=== PATIENT | female | born 1935 | race Caucasian/White ===

== ENCOUNTER 2017-05-14 09:37 | Emergency (ER) | payer MEDICARE, OTHER ==
--- NOTE | ~2017-05-14 | CT4 ---
[facility] A Service of [facility] & [facility] RADIOLOGY TEXT RESULTS PATIENT: DOMINIQUE HOANG LOCATION: SED : 33 UNIT #: [id number] AGE: [address]: Natalio Wynn MD SEX: F ORDER DR: [id number] [address] [address] [id number] E MR#: [id number] Acc #: [id number] NAME: DOMINIQUE HOANG. : 1935 SEX: F STUDY DATE/TIME: 05/14/2017 11:36 UNIT: SED ROOM: STUDY DESCRIPTION: CT Abd and Pelv Wo Cont Attending Physician: Natalio Wynn M.D. Ordering Physician: Natalio Wynn M.D. Primary Care Physician: Davide So Jr., M.D. MEDICAL IMAGING REPORT This report is preliminary unless electronic signature is present. EXAM CT abdomen and pelvis without IV contrast. COMPARISON None. INDICATIONS 81-year-old female with low back pain radiating into the right leg for [address] imaging of the abdomen and pelvis was performed without IV contrast. Lack of IV contrast limits evaluation of adenopathy, vasculature and viscera. Coronal and sagittal reformats were constructed. This CT exam was performed with one or more of the following radiation dose reduction techniques: automatic exposure control, adjustment of mA and/or kV according to patient size, and iterative reconstruction. There is a small fat-containing umbilical hernia. Multilevel degenerative facet disease of the lumbar spine. There is multilevel degenerative endplate change and multilevel degenerative posterior disc protrusion of the lumbar spine. No acute fractures or suspicious osseous lesions. Minimal atelectasis in the anterior inferior right middle lobe. Calcified granulomas in the left lower lobe. Calcified hepatic and splenic granulomas. Layering density seen within the gallbladder lumen consistent with cholelithiasis. No evidence of acute cholecystitis. Adrenal glands are within normal limits. There is mild atrophy of the pancreas. There is no evidence of hydronephrosis. There is scarring in the left kidney inferiorly. No renal or ureteral calculi. Urinary bladder is unremarkable. The patient is post hysterectomy. No evidence of adnexal mass. There is at least moderate bony central canal stenosis at L5-S1 due to degenerative facet hypertrophy primarily. There is severe bony neural foraminal narrowing on the left at [facility] A Service of [facility] & [facility] RADIOLOGY TEXT RESULTS PATIENT: DOMINIQUE HOANG [place] [facility] [place]IT #: [id number] AGE: [address]: Natalio Wynn MD SEX: F ORDER DR: L4-L5 with mild bony neural foraminal narrowing on the left L5-S1. On the left at all the other levels of the lumbar spine, there is mild bony neural foraminal narrowing. On the right, there is severe bony neural foraminal narrowing at L5-S1 with [id number] bony neural foraminal narrowing on the right and L4-L5 and mild bony neural foraminal narrowing on the right at all of the levels of the lumbar spine. Colonic diverticulosis without evidence of acute diverticulitis. Splenule noted in the left upper quadrant of the abdomen. The appendix is not seen and may be surgically absent. No secondary findings of an acute appendicitis. There is nonspecific haziness of the mesenteric fat, perhaps reflecting a mesenteritis of uncertain acuity. There is normal caliber of the abdominal aorta, which is diffusely calcified. Calcifications extend to involve the celiac, the superior mesenteric and bilateral renal arteries and extend into the bilateral iliac arteries. No free fluid or pneumoperitoneum. No adenopathy. IMPRESSION 1. No acute findings the abdomen, pelvis or imaged lower chest. 2. Diffuse degenerative disc disease and degenerative facet disease and posterior disc protrusions of the lumbar spine. There is multilevel bony neural foraminal narrowing most significant at L4-L5 and L5-S1 as described in the body report. There is no acute fracture or subluxation of the lumbar spine. 3. Moderate fat-containing umbilical hernia. 4. Cholelithiasis without evidence of acute cholecystitis. 5. Bony central canal stenosis at L5-S1 primarily due to uncinate hypertrophy and posterior disc osteophyte complex. 6. Diffuse diverticulosis without evidence of acute diverticulitis. 7. Nonspecific haziness of the superior mesenteric fat, perhaps reflecting a mesenteritis of uncertain acuity. One could consider followup CT in 6-12 months to exclude an indolent infiltrating neoplasm. 8. Diffuse arterial calcifications in the abdomen and pelvis. 9. Not mentioned specifically in the body of the report, there is a small hiatal hernia. 10. The patient is post hysterectomy. The appendix is not seen and may also be surgically absent. No secondary findings of an acute appendicitis. Dictated by... Brian Jeff M.D. THIS IS AN ELECTRONICALLY VERIFIED REPORT Brian Jeff M.D. at 05/23/2017 7:55 AM DANNA/andrew TD: 05/14/2017 13:49 JOB #: [id number] [facility] A Service of [facility] & [facility] RADIOLOGY TEXT RESULTS PATIENT: DOMINIQUE HOANG [place] [facility] [place] 33 [place]IT #: [id number] AGE: [address]: Natalio Wynn MD SEX: F ORDER DR: MEDICAL IMAGING REPORT Page 1 of 1
[~2017-05-14 09:37] MED LIST: ASPIRIN81 M2 PO; CIPRO PO; DYAZIDE 371 CAP 37.5 PO; NAPROSYN500 MG PO; PRILOSEC PO; PYRIDIUM PO; ZEBETA5 MG PO
[2017-05-14] MEDS ORDERED: NAPROSYN500 MG PO (09:45)
[2017-05-14] MEDS ORDERED: ZYLOPRIM PO (09:45)
[2017-05-14] MEDS ORDERED: ALBUTEROL 0.5ML INH (09:46)
[2017-05-14 10:49] LABS: BASOPHIL# 0.1 X10e3 (0-0.3); EOSINOPHIL# 0.2 X10e3 (0-0.7); EOSINOPHIL% 3.5 % (0.0-7.0); HEMATOCRIT 37.7 % (35.0-45.0); HEMOGLOBIN 12.2 gm/dL (12.0-16.0); LYMPHOCYTE# 1.5 X10e3 (1.0-3.5); LYMPHOCYTE% 23.1 % (17.0-45.0); MEAN CELL VOLUME 91.2 FL (83-96); MEAN CORPUSCULAR HEMOGLOBIN 29.5 PG (28-34); MEAN CORPUSCULAR HGB CONC 32.3 g/dL (30-36); MEAN PLATELET VOLUME 8.6 FL (6.5-11.5); MONOCYTE# 0.4 X10e3 (0-1.0); MONOCYTE% 6.3 % (3.0-12.0); NEUTROPHIL# 4.1 X10e3 (1.5-7.1); NEUTROPHIL% 66.1 % (40-75); PLATELET COUNT 217 X10e3 (140-420); RED BLOOD COUNT 4.13 X10e (3.90-5.30); WHITE BLOOD COUNT 6.3 X10e3 (4.0-10.5)
[2017-05-14 10:50] LABS: DIFF IND NO
[2017-05-14 11:02] LABS: URINE SOURCE CLEAN CATCH
[2017-05-14 11:03] LABS: URINE APPEARANCE CLEAR; URINE BILIRUBIN NEG (NEG); URINE BLOOD NEG (NEG); URINE COLOR YELLOW; URINE GLUCOSE NEG (NORM); URINE KETONE NEG (NEG); URINE LEUKOCYTE ESTERASE 2+ (NEG); URINE NITRATE NEG (NEG); URINE PH 6.5 (5-8); URINE PROTEIN NEG (NEG); URINE SPECIFIC GRAVITY 1.015 (1.003-1.035); URINE UROBILINOGEN 0.2 MG/DL (NORM)
[2017-05-14 11:15] LABS: MICRO INDICATED? YES
[2017-05-14 11:16] LABS: CULTURE INDICATED? YES; URINE BACTERIA 1+ (NEG); URINE RBC 0-2 /[HPF] (0-2); URINE SQUAMOUS EPITHELIAL CELL MODERATE /[HPF]
[2017-05-14 11:17] LABS: BILIRUBIN, DIRECT 0.1 mg/dL (0.0-0.2); BILIRUBIN,INDIRECT 0.3 mg/dL (0.0-0.9); BILIRUBIN,TOTAL 0.4 mg/dL (0.2-2.0); BUN/CREATININE RATIO 24.16; CALCIUM SERUM 9.4 mg/dL (8.4-10.2); CREATININE SERUM 1.2 mg/dL (0.6-1.4); GLOM FILT RATE Estimated 42.1 mL/min (>60); POTASSIUM 3.9 mmol/L (3.5-5.1); PROTEIN TOTAL SERUM 7.1 g/dL (6.0-8.3)
== END 2017-05-14 13:23 | disposition home or self-care (01) ==
LOC: SED 09:37
PROVIDERS: Emergency Medicine
DX: M54.41 Lumbago with sciatica, right side (principal); I10 Essential (primary) hypertension; Z88.0 Allergy status to penicillin; Z79.82 Long term (current) use of aspirin; Z79.899 Other long term (current) drug therapy
CPT/HCPCS: 36415; 74176; 80048; 80076; 81003; 85025; 87086; 99284